=== PATIENT | female | born 1965 | race Caucasian/White ===

== ENCOUNTER 2016-10-20 09:03 | Day surgery (SDC) | payer BC, MEDICAID ==
[2016-10-20] MEDS ORDERED: Cyanocobalamin (Vitamin B12) 1,000 MCG/ML SDV IM ONE (09:30)
[2016-10-20] MEDS ORDERED: Lactated Ringers 1,000 ML IV SCH (09:45)
[2016-10-20] MEDS ORDERED: Glycopyrrolate 0.2 MG/ML 2 ML SYRINGE IVPUSH ONE (10:01)
[2016-10-20] MEDS ORDERED: MVI, Adult with Vitamin K 10 ML, Thiamine 200 MG, Chromium/Copper/Mang/Selen/Zn 1 ML in... IV ONE ×4 (10:15)
[2016-10-20] MEDS ORDERED: Midazolam 1 MG/ML 2 ML SDV ONE (11:18)
[2016-10-20] MEDS ORDERED: Propofol 200 MG/20 ML SDV ONE (11:18)
[2016-10-20] MEDS ORDERED: fentaNYL 100 MCG/2 ML SDV ONE (11:18)
[2016-10-20] MEDS ORDERED: Pantoprazole 40 MG Vial IVPUSH ONE (11:45)
[2016-10-20 13:00] VITALS: BP 130/83
--- NOTE | 2016-10-27 08:30 | OR ---
DATE OF PROCEDURE: 10/20/2016 PREOPERATIVE DIAGNOSIS: Dysphagia and epigastric discomfort status post Xavier-en-Y gastric bypass. POSTOPERATIVE DIAGNOSIS: Dysphagia and epigastric discomfort status post Xavier-en-Y gastric bypass with large marginal ulcer and marked edema at gastrojejunostomy. OPERATIVE PROCEDURES: Upper gastrointestinal endoscopy with biopsies of gastric pouch for CLOtest. ANESTHESIA: IV sedation. INDICATIONS FOR PROCEDURE: This is a 51-year-old female, presenting with some increasing epigastric discomfort and dysphagia. She is 12 years out from a gastric bypass. She is not presently on any antisecretory medications. Plan is to proceed with upper GI endoscopy with biopsies and/or dilation as indicated. Potential risks of the procedure including bleeding and perforation were discussed, and the patient wishes to proceed. DETAILS OF PROCEDURE: The patient was taken to the operating room and placed in left lateral decubitus position. IV sedation was administered, after which the upper GI endoscope was passed orally through the length of the esophagus and into the gastric pouch, from there through the gastrojejunostomy roughly 20 cm into the Xavier limb. Examination up to the level of the esophagogastric junction was unremarkable. Within the gastric pouch, there was diffuse edema, particularly in the area of the gastrojejunostomy itself, where there was marked edema, probably resulting in the patient's sense of dysphagia. There is a large marginal ulcer also present, beginning at the gastrojejunostomy anastomotic line, extending roughly 2 cm into the Xavier limb. This was covered with a chu fibrinous exudate. No bleeding was seen, and beyond that, the findings within the jejunum normalized. At this point, biopsies were then obtained from the gastric pouch and sent for CLOtest for H. pylori. Minimal bleeding from the biopsy site was seen and the procedure concluded. The patient was taken to the recovery room in satisfactory condition. Plan will be to give the patient Protonix 40 mg IV in the recovery room and then begin 40 mg daily. She will be following up with Madai Coulter at [facility]. If at that time she is not markedly improved in terms of symptoms, she should probably undergo upper endoscopy again to rule out persistence of the ulcer. Pilo Warner MD /[id number]
== END 2016-10-20 12:55 | disposition home or self-care (01) ==
LOC: JP.SDS 09:03
PROVIDERS: ATTEND Surgery
DX: K28.9 Gastrojejunal ulcer, unspecified as acute or chronic, without hemorrhage or perforation (principal); Z98.84 Bariatric surgery status
CPT/HCPCS: 43239; 87081; C9113; J2250; J2704; J3010; J3411; J3420; J7120